=== PATIENT | female | born 1960 | race Caucasian/White ===

== ENCOUNTER 2018-06-08 09:23 | Emergency (ER) | payer BC, SELFPAY ==
[2018-06-08 09:28] VITALS: BP 184/96; PULSE 81; RESP 16; TEMP 37; O2SAT 99
--- NOTE | 2018-06-08 10:17 | ED.GENADUL_ITS ---
Disposition Clinical Impression: Hot tub folliculitis Disposition: HOME Condition: Stable Instructions: Folliculitis (ED) Additional Instructions: Use the topical mupirocin cream 3 times daily for the next 10 days. Follow-up with your primary care doctor in 1 week for reevaluation. You should receive a call from care management regarding follow-up with this appointment. Return to the emergency department with any worsening or new concerning symptoms. Prescriptions: Mupirocin 2% Cream [Bactroban 2% Cream] 1 gm TP TID #1 tube Medical Decision Making - Medical Decision Making 57-year-old female who presents with very mildly pruritic pustules noted to torso and proximal thighs that started 1 day after using hot tub at home. Patient initially did not endorse using a hot tub but through further history, was able to obtain that her symptoms became worse after using a hot tub and started 1 day after initially using hot tub. She also recently started a new supplement of which she took 1 dose. She has scattered follicular pustules which appear consistent with a hot tub folliculitis. There is no induration or fluctuance and no evidence of abscess. She is afebrile and appears nontoxic. Lungs are clear to auscultation, abdomen soft and nontender, normal ENT exam. Although patient's rash is mild, initially started in her right back and now has spread to remainder of her torso and thighs and she has a history of hip replacement so we will send home with mupirocin topical to use as directed. We will place patient on care management list to arrange for a follow-up appointment with her primary care doctor in 1 week for reevaluation. Patient was instructed to return here with any concerns. History of Present Illness - General Chief complaint: RashLesion Stated complaint: RASH Time Seen by Provider: 06/08/18 09:56 Source: patient Mode of arrival: ambulatory Limitations: no limitations - History of Present Illness Initial comments: Patient is a 57-year-old female who presents with a mildly pruritic rash noted to the torso and legs for the past 4 days. Patient states symptoms started after using a hot tub and became worse after using hot tub again. Patient denies fever, sore throat, chest pain, shortness of breath. She has not used any treatment. - Related Data Citalopram [CeleXA] 40 mg PO DAILY 06/08/18 Estradiol [Estrace] 1 mg PO DAILY 06/08/18 Lisinopril 20 mg PO DAILY 06/08/18 Mupirocin 2% Cream [Bactroban 2% Cream] 1 gm TP TID #1 tube 06/08/18 Simvastatin 40 mg PO DAILY 06/08/18 Allergies Allergy/AdvReac Type Severity Reaction Status Date / Time Penicillins Allergy Unverified 06/08/18 09:35 hay fever Allergy Uncoded 06/08/18 09:32 Review of Systems Constitutional: denies: chills, fever Eyes: denies: eye pain ENT: denies: ear pain, throat pain, dental pain Respiratory: denies: cough, shortness of breath Cardiovascular: denies: chest pain, dyspnea on exertion Gastrointestinal: denies: abdominal pain, nausea, vomiting Genitourinary: denies: urgency, dysuria, frequency Musculoskeletal: denies: back pain Skin: rash, lesions Neurological: denies: headache, weakness, numbness Past Medical History - Past Medical History Medical history: hyperlipidemia, hypertension Surgical history: other (Hip replacement) Psychiatric history: anxiety - Social History Smoking status: never smoker Alcohol use: occasionally Drug use: none General Exam - General Limitations: no limitations General appearance: alert, in no apparent distress - Eye Eye exam: Present: EOMI - ENT ENT exam: Present: normal orophraynx, mucous membranes moist, TM's normal bilaterally - Neck Neck exam: Present: normal inspection - Respiratory Respiratory exam: Present: normal lung sounds bilaterally. Absent: respiratory distress, wheezes, rales, rhonchi, stridor - Cardiovascular Cardiovascular Exam: Present: regular rate, normal rhythm. Absent: bradycardia , tachycardia - GI/Abdominal GI/Abdominal exam: Present: soft, normal bowel sounds. Absent: distended, tenderness, guarding, rebound, rigid - Neurological Exam Neurological exam: Present: alert, oriented X3 - Psychiatric Psychiatric exam: Present: normal affect - Skin Skin exam: Present: other (Scattered white and yellow pustules approximately 1- 2 mm in size with minimal surrounding erythema noted to anterior and posterior torso, sides of torso. Minimal amount of small 1 mm papules without pustules noted on bilateral medial thighs.) Course Vital Signs - 24 hr 06/08/18 09:28 Temperature 98.6 F Pulse 81 Respiratory 16 Rate Blood Pressure 184/96 Pulse Oximetry 99
--- NOTE | 2018-06-09 11:14 | CMPROGNOTE_ITS ---
Care Management Progress Note 06/09-Dr. Villanueva requested assistance with a PCP (Marilee Avery) f/u next week for folliculitis. Called Dr. Avery office and spoke with Margarita. Margarita scheduled Syl[facility] for 06/15 at 3:[address] Avery. Margarita is reaching out to [facility] with the appt.
== END 2018-06-08 10:20 | disposition home or self-care (01) ==
PROVIDERS: Emergency Provider Physician Assistant; PCP Family Medicine
DX: L73.9 Follicular disorder, unspecified (principal); I10 Essential (primary) hypertension
CPT/HCPCS: 99283